=== PATIENT | female | born 1985 | race Caucasian/White ===

== ENCOUNTER → 2017-08-08 | Outpatient (REF) ==
[~2017-08-08] MED LIST: CALC-741 PO; CALC500T6 PO; CHOL10005 PO; CHOL500045 PO; DHA PO; ENZY1CAP3 PO; EPA PO; HYDR-4309 PO; MULT-1081 PO; MULT1TAB67 PO; PER PO; VITA100T PO; [UNRECOGNIZED DRUG - CODE] PO; [UNRECOGNIZED DRUG - OTHER] PO; [UNRECOGNIZED DRUG - OTHER] PO; [UNRECOGNIZED DRUG - OTHER] PO; vitamin B12 PO
[2017-08-08 10:42] LABS: LDL CHOLESTEROL 81 mg/dl
== END ==
DX: Z02.9 Encounter for administrative examinations, unspecified (principal)

== ENCOUNTER → 2017-08-08 | Outpatient (CLI) | payer OTHER | LOC: LAB 09:57 | PROVIDERS: ATTEND Emergency Medicine | DX: E53.8 Deficiency of other specified B group vitamins (principal) | CPT/HCPCS: 36415; 82306; 82607 ==

== ENCOUNTER → 2017-11-10 | Outpatient (CLI) | payer OTHER ==
[2017-11-10 08:52] LABS: PLATELET COUNT, AUTOMATED 251 K/uL (150-450)
== END ==
LOC: LAB 08:09
PROVIDERS: ATTEND Emergency Medicine
DX: D75.89 Other specified diseases of blood and blood-forming organs (principal); R74.0 Nonspecific elevation of levels of transaminase and lactic acid dehydrogenase [LDH]; R94.5 Abnormal results of liver function studies
CPT/HCPCS: 82040; 82247; 82248; 84075; 84155; 84450; 84460; 85025

== ENCOUNTER → 2018-02-02 | Outpatient (CLI) | payer OTHER ==
[2018-02-02 16:37] LABS: PLATELET COUNT, AUTOMATED 302 K/uL (150-450)
== END ==
LOC: LAB 16:22
PROVIDERS: ATTEND Emergency Medicine
DX: R74.8 Abnormal levels of other serum enzymes (principal)
CPT/HCPCS: 36415; 82040; 82247; 82248; 84075; 84155; 84450; 84460; 85025

== ENCOUNTER → 2018-02-19 | Outpatient (CLI) | payer OTHER | LOC: RESP 03:51 | PROVIDERS: ATTEND Emergency Medicine | DX: E88.01 Alpha-1-antitrypsin deficiency (principal) | CPT/HCPCS: 94060; 94726; 94729 ==